=== PATIENT | male | born 1980 | race Caucasian/White ===

== ENCOUNTER → 2016-12-29 | Outpatient (CLI) | payer BC | LOC: FIMAGING 12:27 | PROVIDERS: ATTEND Physician Assistant | DX: M54.6 Pain in thoracic spine (principal) ==

== ENCOUNTER → 2017-02-09 | Outpatient (CLI) | payer BC | LOC: FIMAGING 13:10 | PROVIDERS: ATTEND Physician Assistant | DX: M51.34 Other intervertebral disc degeneration, thoracic region (principal); M51.84 Other intervertebral disc disorders, thoracic region ==